=== PATIENT | male | born 1965 | race Caucasian/White ===

== ENCOUNTER 2016-09-21 21:26 | Inpatient (IN) | payer OTHER ==
[~2016-09-21] VITALS: Ht 190.5 cm; Wt 120.0 kg
[~2016-09-21 21:26] MED LIST: ADVAIR HFA120 INHALA IH; AMLODIPINE BESY10 MG PO; FOLIC ACID1 MG PO; HYDROCHLOROTHIA25 MG PO; INDOMETHACIN25 MG PO; K-DUR20 MEQ PO; LEVAQUIN750 MG PO; LIBRIUM25 MG PO; LORAZEPAM1 MG PO; METOPROLOL SUCC25 MG PO; MOTRIN800 MG PO; ONDANSETRON ODT8 MG PO; PREDNISONE20 MG PO; PRILOSEC20 MG PO; TRAZODONE HCL50 MG PO; VENTOLIN HFA18 GM IH; VISTARIL25 MG PO; ZOLOFT50 MG PO
[2016-09-21 21:57] LABS: HEMATOCRIT 49.2 % (38.0-50.0); MCHC 35.4 G/DL (30.0-36.0); MCV 93.4 FL (86-99); MEAN PLAT.VOLUME 11.3 uM^3 (9.0-12.4); PLATELET COUNT 140 K/uL (156-360); RBC DIS.WIDTH-CV 11.9 % (11.8-14.6); RBC DIS.WIDTH-SD 41.1 % (39-53); RED BLOOD COUNT 5.27 M/uL (4.00-5.50); WHITE BLOOD COUNT 9.8 K/uL (4.1-10.2)
[2016-09-21 22:06] LABS: CHLORIDE 92 mEq/L (99-109); POTASSIUM 3.1 mEq/L (3.7-5.4); SODIUM 139 mEq/L (136-147)
[2016-09-21 22:08] LABS: GLUCOSE 99 mg/dL (70-99)
[2016-09-21 22:10] LABS: ANION GAP 19 MEQ/L (2-14); TOTAL BILIRUBIN 2.3 mg/dL (0.0-1.0)
[2016-09-21 22:12] LABS: ALKALINE PHOSPHATASE 77 IU/L (3-129); GFR ESTIMATE (CALCULATED) > 59 mL/min/
[2016-09-21 22:13] LABS: UREA NITROGEN (BUN) 5 mg/dL (9-23)
[2016-09-21 22:14] LABS: DIRECT BILIRUBIN 1.3 mg/dL (0.0-0.3)
[2016-09-21 22:15] LABS: LIPASE 51 U/L (1.0-51.0)
[2016-09-21 22:17] LABS: TROP-I INTERPRETATION NEGATIVE; TROPONIN-I < 0.01 ng/mL (0.0-0.30)
[2016-09-21] MEDS ORDERED: LEVETIRACETAM500 MG PO (23:47)
[2016-09-21] MEDS ORDERED: VISINE A.C300 DROP/1 BOTH EYES (23:48)
[2016-09-22 03:09] VITALS: BP 162/92
[2016-09-22 04:02] LABS: HDL CHOLESTEROL 79 MG/DL (Desirable>=40); LDL CHOLESTEROL 128 mg/dL (Desirable<100); NON-HDL CHOLESTEROL 142 mg/dL (Desirable<160); TOTAL CHOLESTEROL 221 mg/dL (Desirable<200); TRIGLYCERIDES 70 MG/DL (Normal: <150)
[2016-09-22 04:22] LABS: HEMATOCRIT 42.2 % (38.0-50.0); MCH 33.7 PG (29.0-34.0); MCHC 35.8 G/DL (30.0-36.0); MCV 94.2 FL (86-99); MEAN PLAT.VOLUME 11.7 uM^3 (9.0-12.4); PLATELET COUNT 112 K/uL (156-360); RBC DIS.WIDTH-CV 12.1 % (11.8-14.6); RBC DIS.WIDTH-SD 41.6 % (39-53); RED BLOOD COUNT 4.48 M/uL (4.00-5.50); WHITE BLOOD COUNT 6.4 K/uL (4.1-10.2)
[2016-09-22 04:26] LABS: CHLORIDE 97 mEq/L (99-109); POTASSIUM 2.7 mEq/L (3.7-5.4); SODIUM 142 mEq/L (136-147)
[2016-09-22 04:29] LABS: GLUCOSE 95 mg/dL (70-99)
[2016-09-22 04:30] LABS: ANION GAP 15 MEQ/L (2-14)
[2016-09-22 04:31] LABS: TOTAL BILIRUBIN 2.1 mg/dL (0.0-1.0)
[2016-09-22 04:32] LABS: ALKALINE PHOSPHATASE 63 IU/L (3-129); GFR ESTIMATE (CALCULATED) > 59 mL/min/
[2016-09-22 04:33] LABS: UREA NITROGEN (BUN) 3 mg/dL (9-23)
[2016-09-22 04:37] LABS: TROP-I INTERPRETATION NEGATIVE; TROPONIN-I 0.02 ng/mL (0.0-0.30)
[2016-09-22 07:41] VITALS: BP 142/87
[2016-09-22 10:08] LABS: TROP-I INTERPRETATION NEGATIVE; TROPONIN-I 0.01 ng/mL (0.0-0.30)
[2016-09-22 10:46] LABS: ALKALINE PHOSPHATASE 52 IU/L (3-129); ANION GAP 15 MEQ/L (2-14); CHLORIDE 96 MEQ/L (99-109); GFR ESTIMATE (CALCULATED) > 59 mL/min/; GLUCOSE 93 mg/dL (70-99); POTASSIUM 2.9 MEQ/L (3.7-5.4); SAMPLE HEMOLYSIS CHECK 0; SAMPLE ICTERIC CHECK 0; SAMPLE LIPEMIA CHECK 0; SODIUM 140 MEQ/L (136-147); TOTAL BILIRUBIN 2.5 MG/DL (0.0-1.0); UREA NITROGEN (BUN) 4 mg/dL (9-23)
[2016-09-22 11:21] VITALS: BP 141/90
[2016-09-22 15:01] VITALS: BP 158/90
[2016-09-22 15:37] LABS: HEMATOCRIT 42.6 % (38.0-50.0); MCH 33.9 PG (29.0-34.0); MCHC 35.9 G/DL (30.0-36.0); MCV 94.5 FL (86-99); MEAN PLAT.VOLUME 11.6 uM^3 (9.0-12.4); PLATELET COUNT 94 K/uL (156-360); RBC DIS.WIDTH-CV 12.1 % (11.8-14.6); RBC DIS.WIDTH-SD 42.2 % (39-53); RED BLOOD COUNT 4.51 M/uL (4.00-5.50); WHITE BLOOD COUNT 7.2 K/uL (4.1-10.2)
[2016-09-22 15:57] LABS: ADD MIUA? NO; BILIRUBIN NEGATIVE; BLOOD NEGATIVE; COLOR YELLOW ((YELLOW)); GLUCOSE (STRIP) NEGATIVE; KETONES NEGATIVE; LEUKOCYTES NEGATIVE; NITRITE NEGATIVE; PROTEIN (STRIP) NEGATIVE; SPECIFIC GRAVITY 1.011 (1.000-1.030); UCUL ADDED? NO
[2016-09-22 15:59] LABS: ALKALINE PHOSPHATASE 52 IU/L (3-129); ANION GAP 11 MEQ/L (2-14); CHLORIDE 95 MEQ/L (99-109); CREATINE KINASE 943 IU/L (1-294); GFR ESTIMATE (CALCULATED) > 59 mL/min/; GLUCOSE 106 mg/dL (70-99); POTASSIUM 3.2 MEQ/L (3.7-5.4); SAMPLE HEMOLYSIS CHECK 0; SAMPLE ICTERIC CHECK 0; SAMPLE LIPEMIA CHECK 0; SODIUM 138 MEQ/L (136-147); TOTAL BILIRUBIN 2.8 MG/DL (0.0-1.0); UREA NITROGEN (BUN) 4 mg/dL (9-23)
[2016-09-22 17:46] LABS: MAGNESIUM < 0.5 mg/dl (1.3-2.7)
[2016-09-22 20:00] VITALS: BP 150/87
[2016-09-22 23:03] LABS: CHLORIDE 97 mEq/L (99-109); MAGNESIUM 1.3 mg/dL (1.3-2.7); POTASSIUM 2.7 mEq/L (3.7-5.4); SODIUM 137 mEq/L (136-147)
[2016-09-22 23:05] LABS: GLUCOSE 108 mg/dL (70-99)
[2016-09-22 23:06] LABS: ANION GAP 13 MEQ/L (2-14)
[2016-09-22 23:09] LABS: ALKALINE PHOSPHATASE 55 IU/L (3-129); GFR ESTIMATE (CALCULATED) > 59 mL/min/
[2016-09-22 23:10] LABS: UREA NITROGEN (BUN) 5 mg/dL (9-23)
[2016-09-22 23:12] LABS: TOTAL BILIRUBIN 2.6 mg/dL (0.0-1.0)
[2016-09-22 23:47] VITALS: BP 139/82
[2016-09-23 03:42] VITALS: BP 119/77
[2016-09-23 05:27] LABS: INTER. NORMALIZED RATIO 1.4
[2016-09-23 05:30] LABS: PTT 35.2 SEC (25-37)
[2016-09-23 05:32] LABS: EOSINOPHIL (%) 0 % (0-5); HEMATOCRIT 41.9 % (38.0-50.0); IMMATURE GRANULOCYTE (%) 0.2 % (0.0-0.7); INSTRUMENT ABS NEUTROPHIL CT 6.3 K/uL; LYMPHOCYTE COUNT 1.5 K/uL (1.0-2.8); MCH 35.6 PG (29.0-34.0); MCHC 37.2 G/DL (30.0-36.0); MCV 95.7 FL (86-99); MEAN PLAT.VOLUME 12.4 uM^3 (9.0-12.4); MONOCYTE (%) 8.8 % (3-12); MONOCYTE COUNT 0.8 K/uL (0-0.8); NEUTROPHIL (%) 73.6 % (45-76); NEUTROPHIL COUNT 6.3 K/uL (1.8-6.4); PLATELET COUNT 71 K/uL (156-360); RBC DIS.WIDTH-CV 12.2 % (11.8-14.6); RBC DIS.WIDTH-SD 42.7 % (39-53); RED BLOOD COUNT 4.38 M/uL (4.00-5.50); WHITE BLOOD COUNT 8.6 K/uL (4.1-10.2)
[2016-09-23 05:38] LABS: IMMUNOGLOBULIN A 354 MG/DL (40-350); IMMUNOGLOBULIN G 1221 MG/DL (650-1600); IMMUNOGLOBULIN M 111 MG/DL (50-300)
[2016-09-23 07:33] LABS: ANION GAP 13 MEQ/L (2-14); CHLORIDE 97 MEQ/L (99-109); CREATINE KINASE 666 IU/L (1-294); GFR ESTIMATE (CALCULATED) > 59 mL/min/; GLOBULINS 2.9 G/DL (2.3-3.5); GLUCOSE 90 mg/dL (70-99); SAMPLE HEMOLYSIS CHECK 0; SAMPLE ICTERIC CHECK 0; SAMPLE LIPEMIA CHECK 0; SODIUM 138 MEQ/L (136-147); UREA NITROGEN (BUN) 5 mg/dL (9-23)
[2016-09-23 07:35] LABS: POTASSIUM 3.4 MEQ/L (3.7-5.4)
[2016-09-23 08:37] LABS: HEMATOCRIT 41.2 % (38.0-50.0); MCHC 36.7 G/DL (30.0-36.0); MCV 95.4 FL (86-99); MEAN PLAT.VOLUME 12.1 uM^3 (9.0-12.4); PLATELET COUNT 70 K/uL (156-360); RBC DIS.WIDTH-CV 12.3 % (11.8-14.6); RBC DIS.WIDTH-SD 42.7 % (39-53); RED BLOOD COUNT 4.32 M/uL (4.00-5.50); WHITE BLOOD COUNT 7.4 K/uL (4.1-10.2)
[2016-09-23 08:50] VITALS: BP 148/70
[2016-09-23 11:38] LABS: ALBUMIN 3.53 G/DL (3.6-4.9); ALPHA-1 GLOBULIN 0.19 G/DL (0.15-0.40); ALPHA-1 PERCENT 3.1 % (2.1-5.5); ALPHA-2 GLOBULIN 0.78 G/DL (0.45-0.85); ALPHA-2 PERCENT 12.6 % (6.2-11.6); BETA PERCENT 8.5 % (8.9-15.8); GAMMA PERCENT 18.8 % (8.6-18.6); SERUM GEL NO. 93-6
[2016-09-23 12:00] VITALS: BP 124/80
[2016-09-23 12:26] LABS: HBSG INDEX 0.17
[2016-09-23 12:27] LABS: HPCA INDEX 0.15
[2016-09-23 12:28] LABS: ANTI-HEPATITIS A VIRUS (IGM) Nonreactive; HAV INDEX 0.14
[2016-09-23 12:29] LABS: ANTI-HEPATITIS B CORE (IGM) Nonreactive
[2016-09-23 13:27] LABS: ALKALINE PHOSPHATASE 50 IU/L (3-129); TOTAL BILIRUBIN 3.1 MG/DL (0.0-1.0)
[2016-09-23 13:28] LABS: MAGNESIUM 1.7 mg/dl (1.3-2.7)
[2016-09-23 16:35] VITALS: BP 127/78
[2016-09-23 20:34] VITALS: BP 114/64
[2016-09-23 20:52] VITALS: BP 136/75
[2016-09-24] VITALS (7 sets, daily range): BP systolic 120–138; BP diastolic 70–86
[2016-09-24 06:48] LABS: EOSINOPHIL (%) 0.4 % (0-5); HEMATOCRIT 39.2 % (38.0-50.0); IMMATURE GRANULOCYTE (%) 0.3 % (0.0-0.7); INSTRUMENT ABS NEUTROPHIL CT 5.4 K/uL; LYMPHOCYTE COUNT 1.1 K/uL (1.0-2.8); MCH 35.1 PG (29.0-34.0); MCHC 36.7 G/DL (30.0-36.0); MCV 95.6 FL (86-99); MEAN PLAT.VOLUME 12.3 uM^3 (9.0-12.4); MONOCYTE (%) 13.4 % (3-12); NEUTROPHIL (%) 71.5 % (45-76); NEUTROPHIL COUNT 5.4 K/uL (1.8-6.4); PLATELET COUNT 73 K/uL (156-360); RBC DIS.WIDTH-CV 12.1 % (11.8-14.6); RBC DIS.WIDTH-SD 42.5 % (39-53); WHITE BLOOD COUNT 7.5 K/uL (4.1-10.2)
[2016-09-24 07:23] LABS: ALKALINE PHOSPHATASE 42 IU/L (3-129); ANION GAP 10 MEQ/L (2-14); CHLORIDE 96 MEQ/L (99-109); CREATINE KINASE 310 IU/L (1-294); GFR ESTIMATE (CALCULATED) > 59 mL/min/; GLUCOSE 91 mg/dL (70-99); POTASSIUM 2.8 MEQ/L (3.7-5.4); SAMPLE HEMOLYSIS CHECK 0; SAMPLE ICTERIC CHECK 0; SAMPLE LIPEMIA CHECK 0; SODIUM 134 MEQ/L (136-147); TOTAL BILIRUBIN 2.5 MG/DL (0.0-1.0); UREA NITROGEN (BUN) 7 mg/dL (9-23)
[2016-09-24 07:27] LABS: MAGNESIUM 1.1 mg/dl (1.3-2.7)
[2016-09-24 10:22] LABS: LYME DISEASE SEROLOGY SCREEN NEGATIVE (NEGATIVE)
[2016-09-24 15:13] LABS: EOSINOPHIL (%) 0 % (0-5); HEMATOCRIT 42.5 % (38.0-50.0); IMMATURE GRANULOCYTE (%) 0.3 % (0.0-0.7); LYMPHOCYTE COUNT 0.6 K/uL (1.0-2.8); MCH 35.3 PG (29.0-34.0); MCHC 37.2 G/DL (30.0-36.0); MCV 94.9 FL (86-99); MEAN PLAT.VOLUME 11.9 uM^3 (9.0-12.4); MONOCYTE (%) 6.9 % (3-12); MONOCYTE COUNT 0.4 K/uL (0-0.8); NEUTROPHIL (%) 82.4 % (45-76); PLATELET COUNT 77 K/uL (156-360); RBC DIS.WIDTH-CV 12.1 % (11.8-14.6); RBC DIS.WIDTH-SD 42.5 % (39-53); RED BLOOD COUNT 4.48 M/uL (4.00-5.50); WHITE BLOOD COUNT 6.1 K/uL (4.1-10.2)
[2016-09-24 15:38] LABS: C-REACTIVE PROTEIN 237.3 MG/L (0-10)
[2016-09-24 16:16] LABS: ERTH.SED.RATE 47 MM/HR (0-20)
[2016-09-24 22:36] LABS: APPEARANCE HAZY-YELLOW; RED CELL COUNT 12000 /MM^3 (0-1); WHITE CELL COUNT 60774 /MM^3 (0-200.0)
[2016-09-24 22:43] LABS: APPEARANCE CLOUDY-YELLOW; RED CELL COUNT 4000 /MM^3 (0-1)
[2016-09-24 22:44] LABS: WHITE CELL COUNT 46038 /MM^3 (0-200.0)
[2016-09-24 22:48] LABS: MONONUCLEAR WBC'S 5 %; POLYNUCLEAR WBC'S 95 % (0-25); SYNOVIAL FLUID EOSINOPHILS 0 % (0-25)
[2016-09-24 22:51] LABS: MONONUCLEAR WBC'S 5 %; POLYNUCLEAR WBC'S 95 % (0-25); SYNOVIAL FLUID EOSINOPHILS 0 % (0-25)
[2016-09-25 03:35] VITALS: BP 124/76
[2016-09-25 06:36] LABS: EOSINOPHIL (%) 0 % (0-5); HEMATOCRIT 39.2 % (38.0-50.0); IMMATURE GRANULOCYTE (%) 0.6 % (0.0-0.7); INSTRUMENT ABS NEUTROPHIL CT 5.7 K/uL; LYMPHOCYTE COUNT 0.7 K/uL (1.0-2.8); MCV 94.7 FL (86-99); MEAN PLAT.VOLUME 11.6 uM^3 (9.0-12.4); MONOCYTE (%) 8.8 % (3-12); MONOCYTE COUNT 0.6 K/uL (0-0.8); NEUTROPHIL (%) 81.3 % (45-76); NEUTROPHIL COUNT 5.7 K/uL (1.8-6.4); PLATELET COUNT 98 K/uL (156-360); RBC DIS.WIDTH-CV 11.9 % (11.8-14.6); RBC DIS.WIDTH-SD 41.4 % (39-53); RED BLOOD COUNT 4.14 M/uL (4.00-5.50); WHITE BLOOD COUNT 7.1 K/uL (4.1-10.2)
[2016-09-25 07:25] LABS: ALKALINE PHOSPHATASE 51 IU/L (3-129); ANION GAP 11 MEQ/L (2-14); CHLORIDE 99 MEQ/L (99-109); CREATINE KINASE 131 IU/L (1-294); GFR ESTIMATE (CALCULATED) > 59 mL/min/; GLUCOSE 123 mg/dL (70-99); POTASSIUM 3.3 MEQ/L (3.7-5.4); SAMPLE HEMOLYSIS CHECK 0; SAMPLE ICTERIC CHECK 0; SAMPLE LIPEMIA CHECK 0; SODIUM 139 MEQ/L (136-147); UREA NITROGEN (BUN) 10 mg/dL (9-23)
[2016-09-25 07:33] LABS: MAGNESIUM 1.6 mg/dl (1.3-2.7); TOTAL BILIRUBIN 1.7 MG/DL (0.0-1.0)
[2016-09-25 07:43] VITALS: BP 121/78
[2016-09-25 12:03] VITALS: BP 129/78
[2016-09-25 15:18] VITALS: BP 128/80
[2016-09-25 21:03] VITALS: BP 118/74
[2016-09-26 00:15] VITALS: BP 133/86
[2016-09-26 05:30] VITALS: BP 135/82
[2016-09-26 06:44] LABS: ALKALINE PHOSPHATASE 50 IU/L (3-129); ANION GAP 7 MEQ/L (2-14); CHLORIDE 100 MEQ/L (99-109); DIRECT BILIRUBIN 0.5 mg/dL (0.0-0.3); GFR ESTIMATE (CALCULATED) > 59 mL/min/; GLUCOSE 155 mg/dL (70-99); MAGNESIUM 1.4 mg/dl (1.3-2.7); POTASSIUM 3.1 MEQ/L (3.7-5.4); SAMPLE HEMOLYSIS CHECK 0; SAMPLE ICTERIC CHECK 0; SAMPLE LIPEMIA CHECK 0; SODIUM 136 MEQ/L (136-147); UREA NITROGEN (BUN) 13 mg/dL (9-23)
[2016-09-26 06:46] LABS: TOTAL BILIRUBIN 1.3 MG/DL (0.0-1.0)
[2016-09-26 06:57] LABS: EOSINOPHIL (%) 0 % (0-5); HEMATOCRIT 38.9 % (38.0-50.0); IMMATURE GRANULOCYTE (%) 0.7 % (0.0-0.7); IMMATURE GRANULOCYTE COUNT 0.1 K/uL; INSTRUMENT ABS NEUTROPHIL CT 6.1 K/uL; LYMPHOCYTE COUNT 0.6 K/uL (1.0-2.8); MCH 33.7 PG (29.0-34.0); MCHC 35.7 G/DL (30.0-36.0); MCV 94.2 FL (86-99); MEAN PLAT.VOLUME 11.4 uM^3 (9.0-12.4); MONOCYTE (%) 7.9 % (3-12); MONOCYTE COUNT 0.6 K/uL (0-0.8); NEUTROPHIL (%) 83.4 % (45-76); NEUTROPHIL COUNT 6.1 K/uL (1.8-6.4); RBC DIS.WIDTH-CV 11.9 % (11.8-14.6); RBC DIS.WIDTH-SD 41.3 % (39-53); RED BLOOD COUNT 4.13 M/uL (4.00-5.50); WHITE BLOOD COUNT 7.3 K/uL (4.1-10.2)
[2016-09-26 07:07] VITALS: BP 139/88
[2016-09-26 07:50] LABS: PLATELET COUNT 140 K/uL (156-360)
[2016-09-26 09:50] VITALS: BP 138/85
[2016-09-26] MEDS ORDERED: VENTOLIN HFA18 GM IH (11:46)
[2016-09-26] MEDS ORDERED: ADVAIR HFA120 INHALA IH (11:47)
[2016-09-26] MEDS ORDERED: PANTOPRAZOLE SO40 MG PO (11:49)
[2016-09-26] MEDS ORDERED: COLCHICINE0.6 M1 PO (11:52)
[2016-09-26] MEDS ORDERED: PREDNISONE10 MG PO (11:55)
[2016-09-26] MEDS ORDERED: MOTRIN800 MG PO (11:56)
[2016-09-26] MEDS ORDERED: FOLIC ACID1 MG PO (12:02)
[2016-09-26] MEDS ORDERED: THERAGRAN1 TABLET PO (12:02)
[2016-09-26] MEDS ORDERED: B-1100 MG PO (12:03)
[2016-09-26] MEDS ORDERED: K-DUR20 MEQ PO (12:04)
[2016-09-26] MEDS ORDERED: MAG-OXIDE400 MG PO (12:04)
== END 2016-09-26 12:50 | disposition home or self-care (01) | DRG 189 ==
LOC: EME 21:26 → EDOF 09-22 00:27 → ENRESERV 09-22 00:29 → 5WEST 09-22 02:50 → 5EAST 09-23 10:40 → 5WEST 09-23 10:40 → ENRESERV 09-23 10:43 → 5EAST 09-23 16:35 → ENPENDDIS 09-26 → 5EAST 09-26 12:50
PROVIDERS: Hospitalist; Internal Medicine; Orthopaedic Surgery Sports Medicine; Specialist
DX: J96.01 Acute respiratory failure with hypoxia (principal); K92.0 Hematemesis; M62.82 Rhabdomyolysis; D69.59 Other secondary thrombocytopenia; E83.42 Hypomagnesemia; E83.51 Hypocalcemia; M10.061 Idiopathic gout, right knee; G47.33 Obstructive sleep apnea (adult) (pediatric); R07.2 Precordial pain; G89.29 Other chronic pain; R94.31 Abnormal electrocardiogram [ECG] [EKG]; E87.6 Hypokalemia; R79.89 Other specified abnormal findings of blood chemistry; R20.0 Anesthesia of skin; J45.909 Unspecified asthma, uncomplicated; F10.239 Alcohol dependence with withdrawal, unspecified; M17.11 Unilateral primary osteoarthritis, right knee; M10.062 Idiopathic gout, left knee; M17.12 Unilateral primary osteoarthritis, left knee; I10 Essential (primary) hypertension; G40.909 Epilepsy, unspecified, not intractable, without status epilepticus; K21.9 Gastro-esophageal reflux disease without esophagitis; Z82.49 Family history of ischemic heart disease and other diseases of the circulatory system; Z80.0 Family history of malignant neoplasm of digestive organs; Z79.899 Other long term (current) drug therapy; Z90.49 Acquired absence of other specified parts of digestive tract; K70.10 Alcoholic hepatitis without ascites; Z79.1 Long term (current) use of non-steroidal anti-inflammatories (NSAID); R13.10 Dysphagia, unspecified; K76.0 Fatty (change of) liver, not elsewhere classified; K57.30 Diverticulosis of large intestine without perforation or abscess without bleeding; M65.862 Other synovitis and tenosynovitis, left lower leg; M65.861 Other synovitis and tenosynovitis, right lower leg; E66.9 Obesity, unspecified; Z68.33 Body mass index [BMI] 33.0-33.9, adult; E86.0 Dehydration; R74.0 Nonspecific elevation of levels of transaminase and lactic acid dehydrogenase [LDH]; M54.2 Cervicalgia; R16.0 Hepatomegaly, not elsewhere classified; R20.2 Paresthesia of skin; R79.82 Elevated C-reactive protein (CRP)
CPT/HCPCS: 70450; 71020; 71275; 73565; 74177; 74220; 80048; 80053; 80061; 80076; 80202; 81003; 82390; 82550; 82607; 82746; 82784 90; 83605; 83690; 83735; 84100; 84165; 84484; 84550; 85025; 85025 91; 85027; 85610; 85651; 85730; 86038; 86140; 86618; 86705; 86709; 86803; 86812 90; 87040; 87205; 87340; 87798 90; 89051; 89060; 93005; 94010; 94640; 94640 76; 94760; 94799; 99202; 99281; 99285; G0378; G0480; J0610; J0696; J1644; J2060; J2270; J2405; J2543; J2930; J3301; J3370; J3475; J3480; J7030; J7050

== ENCOUNTER 2017-06-30 11:28 | Emergency (ER) | payer OTHER ==
[~2017-06-30] VITALS: Ht 190.5 cm; Wt 118.1 kg
[~2017-06-30 11:28] MED LIST changes: +B-1100 MG PO; +COLCHICINE0.6 M1 PO; +LEVETIRACETAM500 MG PO; +MAG-OXIDE400 MG PO; +PANTOPRAZOLE SO40 MG PO; +PREDNISONE10 MG PO; +THERAGRAN1 TABLET PO; +VISINE A.C300 DROP/1 BOTH EYES
[2017-06-30 12:54] LABS: HEMATOCRIT 45.5 % (38.0-50.0); HEMOGLOBIN 16.4 G/DL (12.5-16.6); MCH 35.3 PG (29.0-34.0); MCV 98.1 FL (86-99); PLATELET COUNT 140 K/uL (156-360); RBC DIS.WIDTH-CV 12.9 % (11.8-14.6); RBC DIS.WIDTH-SD 46.2 % (39-53); RED BLOOD COUNT 4.64 M/uL (4.00-5.50); WHITE BLOOD COUNT 6.9 K/uL (4.1-10.2)
[2017-06-30 13:03] LABS: CHLORIDE 101 mEq/L (99-109); MAGNESIUM 1.2 mg/dL (1.3-2.7); POTASSIUM 3.5 mEq/L (3.7-5.4); SODIUM 145 mEq/L (136-147)
[2017-06-30 13:05] LABS: GLUCOSE 104 mg/dL (70-99); TOTAL PROTEIN 7.4 g/dL (6.4-8.3)
[2017-06-30 13:07] LABS: TOTAL BILIRUBIN 1.1 mg/dL (0.0-1.0)
[2017-06-30 13:09] LABS: ALKALINE PHOSPHATASE 61 IU/L (3-129); CREATININE 0.7 mg/dL (0.6-1.3); GFR ESTIMATE (CALCULATED) > 59 mL/min/ (58.99-99999)
[2017-06-30 13:10] LABS: UREA NITROGEN (BUN) 7 mg/dL (9-23)
[2017-06-30 13:11] LABS: AST (GOT) 62 IU/L (2-34)
[2017-06-30 13:12] LABS: ALT (GPT) 28 IU/L (3-49)
[2017-06-30] MEDS ORDERED: LIBRIUM25 MG PO (14:13)
[2017-06-30] MEDS ORDERED: B-1100 MG PO (14:13)
[2017-06-30 14:30] VITALS: BP 114/94
== END 2017-06-30 14:43 | disposition home or self-care (01) ==
LOC: EME 11:28
PROVIDERS: Physician Assistant Medical
DX: F10.10 Alcohol abuse, uncomplicated (principal); L42 Pityriasis rosea; F32.9 Major depressive disorder, single episode, unspecified; F41.9 Anxiety disorder, unspecified; I10 Essential (primary) hypertension; M10.9 Gout, unspecified
CPT/HCPCS: 71046; 80053; 83735; 85027; 99281; 99283

== ENCOUNTER 2017-07-11 19:12 | Emergency (ER) | payer OTHER ==
[~2017-07-11] VITALS: Ht 190.5 cm; Wt 115.8 kg
[2017-07-11 20:37] LABS: HEMOGLOBIN 17.3 G/DL (12.5-16.6); MCH 35.2 PG (29.0-34.0); MCV 97.6 FL (86-99); PLATELET COUNT 142 K/uL (156-360); RBC DIS.WIDTH-CV 12.5 % (11.8-14.6); RED BLOOD COUNT 4.92 M/uL (4.00-5.50); WHITE BLOOD COUNT 6.3 K/uL (4.1-10.2)
[2017-07-11 20:55] LABS: ALBUMIN 4.4 g/dL (3.2-4.8); CHLORIDE 101 mEq/L (99-109); POTASSIUM 3.5 mEq/L (3.7-5.4); SODIUM 148 mEq/L (136-147)
[2017-07-11 20:57] LABS: GLUCOSE 91 mg/dL (70-99); TOTAL PROTEIN 8.1 g/dL (6.4-8.3)
[2017-07-11 20:59] LABS: TOTAL BILIRUBIN 0.9 mg/dL (0.0-1.0)
[2017-07-11 21:00] LABS: SERUM ETHYL ALCOHOL 340 mg/dL
[2017-07-11 21:01] LABS: CREATININE 0.8 mg/dL (0.6-1.3); GFR ESTIMATE (CALCULATED) > 59 mL/min/ (58.99-99999)
[2017-07-11 21:02] LABS: ALKALINE PHOSPHATASE 67 IU/L (3-129); AST (GOT) 136 IU/L (2-34)
[2017-07-11 21:03] LABS: UREA NITROGEN (BUN) 3 mg/dL (9-23)
[2017-07-11 21:04] LABS: SALICYLATE < 5.0 MG/DL (15-30)
[2017-07-11 21:05] LABS: ACETAMINOPHEN (TYLENOL) < 10 mcg/mL (10-30); ALT (GPT) 52 IU/L (3-49)
[2017-07-11 22:41] VITALS: BP 140/91
== END 2017-07-11 22:41 | disposition left against medical advice (07) ==
LOC: EME 19:12
PROVIDERS: Nurse Practitioner Family
DX: F41.9 Anxiety disorder, unspecified (principal); F32.9 Major depressive disorder, single episode, unspecified; F43.10 Post-traumatic stress disorder, unspecified; F10.20 Alcohol dependence, uncomplicated; Y90.8 Blood alcohol level of 240 mg/100 ml or more; I10 Essential (primary) hypertension
CPT/HCPCS: 80053; 81003; 85027; 93005; 99281; 99284; G0480